=== PATIENT | female | born 1995 | race Caucasian/White ===

== ENCOUNTER 2018-02-12 18:11 | Emergency (ER) | payer OTHER ==
[~2018-02-12] VITALS: Ht 170.2 cm; Wt 90.6 kg
[2018-02-12 18:41] VITALS: TEMP 37
[2018-02-12] MEDS ORDERED: SODIUM CHLORIDE 0.9% 1000ML 1,000 ML IV STA (18:46)
--- NOTE | 2018-02-12 18:54 | EMERGENCY ROOM VISIT NOTE ---
History Report prepared by Geovanni: Magda Dinh Under the Supervision of: Dr. Efrain Clark D.O. First contact with patient: 18:44 Chief Complaint: HEADACHE Stated Complaint: VISION LOSS/ MIGRAINES History of Present Illness The patient is a 22 year old female who presents to the Emergency Room with complaints of intermittent vision loss occurring over the last month. The patient reports that her left eye and sometimes both eyes start to lose vision and that this has been occurring about twice per week. The patient states that today she was looking at her computer screen and that she was unable to focus on the screen and states that the screen seemed distorted. She reports having headaches today and states that she has been getting them over the last several months. The patient denies any medical problems or surgeries. She reports occasional alcohol use, but denies tobacco use. The patient reports that her last time drinking was last weekend. The patient denies any falls or head injuries, and also denies neck pain, and weakness in her arms and legs. She reports that her last period was a week ago. Source of History: patient Onset: the last month Position: eye (bilateral) Quality: other (vision loss) Associated Symptoms: + headache, No neck pain, No weakness (in arms and legs ) Review of Systems See HPI for pertinent positives & negatives. A total of 10 systems reviewed and were otherwise negative. Past Medical & Surgical Medical Problems: (1) No active medical problems Family History Cancer Depression Heart disease Hypertension Social History Smoking Status: Never Smoker Alcohol Use: occasionally Drug Use: none Occupation Status: [employer] Current/Historical Medications Scheduled Control Pills ( Control Pills), 1 TAB PO DAILY Allergies Coded Allergies: No Known Allergies (Unverified , 02/12/18) Physical Exam Vital Signs Date Time Temp Pulse Resp B/P (MAP) Pulse Ox O2 Delivery O2 Flow Rate FiO2 02/12/18 21:40 89 20 141/88 98 02/12/18 20:19 77 14 132/82 100 Room Air 02/12/18 18:41 37.0 94 18 144/92 100 Room Air Physical Exam GENERAL: Patient is awake, alert, and in no acute distress. Patient is resting comfortably and showing no signs of anxiety EYES: The conjunctivae are clear. The pupils are round and reactive. EARS, NOSE, MOUTH AND THROAT: The nose is without any evidence of any deformity. Mucous membranes are moist tongue is midline NECK: The neck is nontender and supple. RESPIRATORY: Normal respiratory effort is noted there is no evidence of wheezing rhonchi or rales CARDIOVASCULAR: Regular rate and rhythm noted there no murmurs rubs or gallops normal S1 normal S2 GASTROINTESTINAL: The abdomen is soft. Bowel sounds are present in all quadrants. Abdomen is nontender MUSCULOSKELETAL/EXTREMITIES: There is no evidence of gross deformity full range of motion is noted in the hips and shoulders SKIN: There is no obvious evidence of any rash. There are no petechiae, pallor or cyanosis noted. NEUROLOGIC: Patient is awake alert and oriented x3 strength is symmetric patellar reflexes are 2+ bilaterally Medical Decision & Procedures ER Provider Diagnostic Interpretation: Radiology results as stated below per my review and radiologist interpretation: CHEST ONE VIEW PORTABLE CLINICAL HISTORY: 22 years-old Female presenting with EVALUATE ALTERED MENTAL STATUS/WEAKNESS. TECHNIQUE: Portable upright AP view of the chest was obtained. COMPARISON: None. FINDINGS: Cardiomediastinal silhouette normal. Lungs and pleural spaces clear. Osseous structures normal. Upper abdomen normal. IMPRESSION: 1. No acute cardiopulmonary disease. Electronically signed by: Moises Berger M.D. 02/12/2018 7:17 PM Dictated Date/Time: 02/12/2018 7:17 PM MRA HEAD WITHOUT CONTRAST CLINICAL HISTORY: 22 years-old Female presenting with headache 1 month, vision loss intermittently, left eye worse than right. TECHNIQUE: MR angiography of the head was performed without the use of intravenous contrast using 3-D [id number] technique. 3-D volumetric and/or maximum intensity projection (MIP) images were subsequently reconstructed for review. IV contrast: None. COMPARISON: None. FINDINGS: Anterior circulation: Intracranial portions of the internal carotid arteries patent to the level of the termini. Anterior and middle cerebral arteries patent. Anterior communicating artery patent. Posterior circulation: Codominant vertebral arteries. Intradural portions of the vertebral arteries patent. Posterior inferior cerebellar arteries patent. Basilar artery patent. Anterior inferior cerebellar arteries poorly visualized. Superior cerebellar and posterior cerebral arteries patent. Posterior communicating arteries patent. IMPRESSION: 1. No significant stenosis, aneurysm, or focal vessel occlusion. Electronically signed by: Moises Berger M.D. 02/12/2018 8:03 PM Dictated Date/Time: 02/12/2018 8:01 PM BRAIN WITHOUT CONTRAST CLINICAL HISTORY: 22 years-old Female presenting with TURNER and vision issues. TECHNIQUE: Multisequence, multiplanar MR imaging of the brain was performed without the use of intravenous contrast. IV contrast: None. COMPARISON: None. FINDINGS: Ventricles and sulci normal in size. Limited foci of T2/FLAIR hyperintensity in periventricular white matter (series 6 image 7), which is unexpected for the patient's age. No mass effect or midline shift. No restricted diffusion to suggest acute ischemia. No hemorrhage. No extra-axial fluid collection. T2 skull base flow voids preserved. Bone marrow signal intensity within the calvarium within normal limits. IMPRESSION: 1. No acute intracranial abnormality. 2. Limited foci of white matter signal abnormality are nonspecific but can be seen in the setting of migraines. Other less likely etiologies include demyelinating disease or vasculitis. Electronically signed by: Moises Berger M.D. 02/12/2018 8:20 PM Dictated Date/Time: 02/12/2018 8:16 PM Laboratory Results 02/12/18 19:20 Red Blood Count 4.73, Mean Corpuscular Volume 85.0, Mean Corpuscular Hemoglobin 29.4, Mean Corpuscular Hemoglobin Concent 34.6, Mean Platelet Volume 9.8, Neutrophils (%) (Auto) 58.4, Lymphocytes (%) (Auto) 34.9, Monocytes (%) (Auto) 5.4, Eosinophils (%) (Auto) 1.0, Basophils (%) (Auto) 0.2, Neutrophils # (Auto) 4.87, Lymphocytes # (Auto) 2.91, Monocytes # (Auto) 0.45, Eosinophils # (Auto) 0.08, Basophils # (Auto) 0.02 02/12/18 19:20 Test 02/12/18 19:20 02/12/18 19:24 White Blood Count 8.34 K/uL (4.8-10.8) Red Blood Count 4.73 M/uL (4.2-5.4) Hemoglobin 13.9 g/dL (12.0-16.0) Hematocrit 40.2 % (37-47) Mean Corpuscular Volume 85.0 fL (80-100) Mean Corpuscular Hemoglobin 29.4 pg (25-34) Mean Corpuscular Hemoglobin Concent 34.6 g/dl (32-36) Platelet Count 300 K/uL (130-400) Mean Platelet Volume 9.8 fL (7.4-10.4) Neutrophils (%) (Auto) 58.4 % Lymphocytes (%) (Auto) 34.9 % Monocytes (%) (Auto) 5.4 % Eosinophils (%) (Auto) 1.0 % Basophils (%) (Auto) 0.2 % Neutrophils # (Auto) 4.87 K/uL (1.4-6.5) Lymphocytes # (Auto) 2.91 K/uL (1.2-3.4) Monocytes # (Auto) 0.45 K/uL (0.11-0.59) Eosinophils # (Auto) 0.08 K/uL (0-0.5) Basophils # (Auto) 0.02 K/uL (0-0.2) RDW Standard Deviation 39.5 fL (36.4-46.3) RDW Coefficient of Variation 12.7 % (11.5-14.5) Immature Granulocyte % (Auto) 0.1 % Immature Granulocyte # (Auto) 0.01 K/uL (0.00-0.02) Erythrocyte Sedimentation Rate 7 mm/hr (0-21) Prothrombin Time 9.9 SECONDS (9.0-12.0) Prothromb Time International Ratio 0.9 (0.9-1.1) Activated Partial Thromboplast Time 25.2 SECONDS (21.0-31.0) Partial Thromboplastin Ratio 1.0 Anion Gap 7.0 mmol/L (3-11) Est Creatinine Clear Calc Drug Dose 114.3 ml/min Estimated GFR () 105.9 Estimated GFR (Non- 91.4 BUN/Creatinine Ratio 11.3 (10-20) Calcium Level 9.1 mg/dl (8.5-10.1) Magnesium Level 2.0 mg/dl (1.8-2.4) Total Bilirubin 0.4 mg/dl (0.2-1) Direct Bilirubin 0.1 mg/dl (0-0.2) Aspartate Amino Transf (AST/SGOT) 15 U/L (15-37) Alanine Aminotransferase (ALT/SGPT) 19 U/L (12-78) Alkaline Phosphatase 66 U/L (45-117) C-Reactive Protein 0.97 mg/dl (0-0.29) Total Protein 8.2 gm/dl (6.4-8.2) Albumin 3.9 gm/dl (3.4-5.0) Thyroid Stimulating Hormone (TSH) 3.050 uIu/ml (0.300-4.500) Human Chorionic Gonadotropin, Qual NEG (NEG) Lyme Disease IgG Antibody NEG (NEG) Lyme Disease IgM Antibody NEG (NEG) Urine Color YELLOW Urine Appearance CLEAR (CLEAR) Urine pH 7.0 (4.5-7.5) Urine Specific [place] 1.008 (1.000-1.030) Urine Protein NEG (NEG) Urine Glucose (UA) NEG (NEG) Urine Ketones NEG (NEG) Urine Occult Blood NEG (NEG) Urine Nitrite NEG (NEG) Urine Bilirubin NEG (NEG) Urine Urobilinogen NEG (NEG) Urine Leukocyte Esterase NEG (NEG) Laboratory results per my review. Medications Administered Medications (Trade) Dose Ordered Sig/Harry Route Start Time Stop Time Status Last Admin Dose Admin Sodium Chloride 1,000 ml @ 999 mls/hr Q1H1M STAT IV 02/12/18 18:46 02/12/18 19:46 DC 02/12/18 18:46 999 MLS/HR ECG Per My Interpretation Indication: weakness Rate (beats per minute): 71 Rhythm: normal sinus Findings: no ectopy, other (no ST segments) Comparison ECG Date: no prior available ED Course 1844: The patient was evaluated in room C4. A complete history and physical examination were performed. 1845: Ordered Sodium Chloride 1,000 ml @ 999 mls/hr IV. 2052: I updated the patient on her results. She does not wish me to discuss things with her parents at this time. 2055: I discussed the patient's case with Dr. Amaro who said that he can see the patient in outpatient followup. 2099: The patient changed her mind so I discussed the patient's case with her mother. 2109: Upon reevaluation, the patient is resting. I discussed the results and treatment plan with her. She verbalized agreement of the treatment plan. She was discharged home. Medical Decision Differential diagnosis: Etiologies such as migraine headache, meningitis, sinusitis, CO exposure, ICH, SAH, infection, tumor, headache, sinus thrombosis, arterial dissection, as well as others were entertained. Nursing notes reviewed. The patient is a 22-year-old female who presented to the emergency department for an evaluation of headache. The patient describes a headache with some visual disturbances. She actually describes some closing in of her vision. She had no meningismus or any focal neurologic deficit on my exam. Because of the symptoms the patient had an MRI MRA of the brain obtained. I discussed the patient's laboratory and radiographic studies with her. On subsequent reevaluation. I discussed her condition as well as her findings with her mother as well. Because she is a college student I do feel she may require further follow-up. For this reason I discussed her case with the on-call [facility] neurologist. At this time he is agreed to see the patient follow-up. I do not feel further radiographic workup would be warranted. I do not feel the patient would be a candidate for lumbar puncture at this time given her other findings. She was encouraged to rest and avoid any strenuous activity. I also encouraged her to continue all medications as prescribed including Motrin and Tylenol. I also recommended that she return to the emergency department immediately if symptoms change worsen or the need arises. Medication Reconcilliation Current Medication List: was personally reviewed by me Blood Pressure Screening Patient's blood pressure: Elevated blood pressure Blood pressure disposition: Elevated BP felt to be situational Consults Time Called: 2053 Consulting Physician: Dr. Amaro- Neurology Returned Call: 2055 I discussed the patient's case with Dr. Amaro who said that he can see the patient in outpatient followup. Impression Primary Impression: Headache Additional Impression: Visual disturbances Scribe Attestation The scribe's documentation has been prepared under my direction and personally reviewed by me in its entirety. I confirm that the note above accurately reflects all work, treatment, procedures, and medical decision making performed by me. Departure Information Dispostion Home / Self-Care Referrals Maury Amaro M.D. [facility] Forms HOME CARE DOCUMENTATION FORM, IMPORTANT VISIT INFORMATION Patient Instructions [facility] Additional Instructions Call the neurologist to schedule a follow-up appointment. Rest and avoid any strenuous activity. Continue using Motrin and Tylenol as directed for pain. Return to the emergency department immediately if symptoms change worsen or the need arises. Problem Qualifiers Primary Impression: Headache Headache type: unspecified Headache chronicity pattern: unspecified pattern Intractability: not intractable Qualified Codes: R51 - Headache
--- NOTE | 2018-02-12 19:18 | DIAGNOSTIC IMAGING REPORT ---
CHEST ONE VIEW PORTABLE CLINICAL HISTORY: 22 years-old Female presenting with EVALUATE ALTERED MENTAL STATUS/WEAKNESS. TECHNIQUE: Portable upright AP view of the chest was obtained. COMPARISON: None. FINDINGS: Cardiomediastinal silhouette normal. Lungs and pleural spaces clear. Osseous structures normal. Upper abdomen normal. IMPRESSION: 1. No acute cardiopulmonary disease. Electronically signed by: Moises Berger M.D. 02/12/2018 7:17 PM Dictated Date/Time: 02/12/2018 7:17 PM
[2018-02-12 19:24] VITALS: Ht 170.2 cm; Wt 90.6 kg
[2018-02-12 19:34] LABS: BASO % 0.2 %; BASO ABS # 0.02 K/uL (0-0.2); EOS ABS # 0.08 K/uL (0-0.5); HEMATOCRIT 40.2 % (37-47); HEMOGLOBIN 13.9 g/dL (12.0-16.0); IG# 0.01 K/uL (0.00-0.02); LYMPH % 34.9 %; LYMPH ABS # 2.91 K/uL (1.2-3.4); MEAN CORPUSCULAR HEMOGLOBIN 29.4 pg (25-34); MEAN CORPUSCULAR HGB CONC 34.6 g/dl (32-36); MEAN PLATELET VOLUME 9.8 fL (7.4-10.4); MONO % 5.4 %; MONO ABS # 0.45 K/uL (0.11-0.59); NEUT % 58.4 %; NEUT ABS # 4.87 K/uL (1.4-6.5); PLATELET COUNT 300 K/uL (130-400); RED CELL DISTRIBUTION WIDTH CV 12.7 % (11.5-14.5); RED CELL DISTRIBUTION WIDTH SD 39.5 fL (36.4-46.3); WHITE BLOOD COUNT 8.34 K/uL (4.8-10.8)
[2018-02-12 19:44] LABS: INR 0.9 (0.9-1.1); PTT PATIENT 25.2 SECONDS (21.0-31.0)
[2018-02-12 20:04] LABS: ALBUMIN 3.9 gm/dl (3.4-5.0); CALCIUM 9.1 mg/dl (8.5-10.1); CREATININE 0.9 mg/dl (0.60-1.20); POTASSIUM 3.6 mmol/L (3.5-5.1)
--- NOTE | 2018-02-12 20:04 | DIAGNOSTIC IMAGING REPORT ---
MRA HEAD WITHOUT CONTRAST CLINICAL HISTORY: 22 years-old Female presenting with headache 1 month, vision loss intermittently, left eye worse than right. TECHNIQUE: MR angiography of the head was performed without the use of intravenous contrast using 3-D [id number] technique. 3-D volumetric and/or maximum intensity projection (MIP) images were subsequently reconstructed for review. IV contrast: None. COMPARISON: None. FINDINGS: Anterior circulation: Intracranial portions of the internal carotid arteries patent to the level of the termini. Anterior and middle cerebral arteries patent. Anterior communicating artery patent. Posterior circulation: Codominant vertebral arteries. Intradural portions of the vertebral arteries patent. Posterior inferior cerebellar arteries patent. Basilar artery patent. Anterior inferior cerebellar arteries poorly visualized. Superior cerebellar and posterior cerebral arteries patent. Posterior communicating arteries patent. IMPRESSION: 1. No significant stenosis, aneurysm, or focal vessel occlusion. Electronically signed by: Moises Berger M.D. 02/12/2018 8:03 PM Dictated Date/Time: 02/12/2018 8:01 PM
[2018-02-12 20:13] LABS: TOTAL PROTEIN 8.2 gm/dl (6.4-8.2)
--- NOTE | 2018-02-12 20:21 | DIAGNOSTIC IMAGING REPORT ---
BRAIN WITHOUT CONTRAST CLINICAL HISTORY: 22 years-old Female presenting with TURNER and vision issues. TECHNIQUE: Multisequence, multiplanar MR imaging of the brain was performed without the use of intravenous contrast. IV contrast: None. COMPARISON: None. FINDINGS: Ventricles and sulci normal in size. Limited foci of T2/FLAIR hyperintensity in periventricular white matter (series 6 image 7), which is unexpected for the patient's age. No mass effect or midline shift. No restricted diffusion to suggest acute ischemia. No hemorrhage. No extra-axial fluid collection. T2 skull base flow voids preserved. Bone marrow signal intensity within the calvarium within normal limits. IMPRESSION: 1. No acute intracranial abnormality. 2. Limited foci of white matter signal abnormality are nonspecific but can be seen in the setting of migraines. Other less likely etiologies include demyelinating disease or vasculitis. Electronically signed by: Moises Berger M.D. 02/12/2018 8:20 PM Dictated Date/Time: 02/12/2018 8:16 PM
[2018-02-12] MEDS ORDERED: BCPILLS PO (20:53)
[2018-02-12 21:40] VITALS: BP 141/88; PULSE 89; O2SAT 98
== END 2018-02-12 21:41 | disposition home or self-care (01) ==
LOC: C.EDB 18:14 → C.EDC 21:41
DX: R51 Headache (principal); H53.9 Unspecified visual disturbance; Z80.9 Family history of malignant neoplasm, unspecified; Z82.49 Family history of ischemic heart disease and other diseases of the circulatory system; Z81.8 Family history of other mental and behavioral disorders; Z79.3 Long term (current) use of hormonal contraceptives